=== PATIENT | female | born 1995 | race Caucasian/White ===

== ENCOUNTER 2018-02-09 08:16 | Emergency (ER) | payer OTHER ==
[~2018-02-09] VITALS: Ht 154.9 cm; Wt 61.2 kg
[2018-02-09] MEDS ORDERED: PNEU16DI2 (08:32)
[2018-02-09] MEDS ORDERED: LEVSIN/SL0.125 MG (08:32)
== END 2018-02-09 14:57 | disposition home or self-care (01) ==
LOC: ER 08:16
DX: K52.9 Noninfective gastroenteritis and colitis, unspecified (principal)

== ENCOUNTER → 2020-08-07 | Outpatient (CLI) | payer OTHER ==
[~2020-08-07] MED LIST: LEVSIN/SL0.125 MG; PNEU16DI2
== END | disposition home or self-care (01) ==
LOC: LAB 08:59
DX: Z00.00 Encounter for general adult medical examination without abnormal findings (principal)